=== PATIENT | female | born 1965 ===

== ENCOUNTER 2018-06-12 12:24 | Outpatient (CLI) | payer OTHER ==
[2018-06-12] MEDS ORDERED: COZAAR25 MG PO (15:55)
== END 2018-06-12 17:21 | disposition home or self-care (01) ==
LOC: EDBD 12:24 → RAD 12:24
DX: R05 Cough (principal)

== ENCOUNTER → 2018-06-12 13:45 | Outpatient (CLI) | payer OTHER ==
[~2018-06-12 13:45] MED LIST: COZAAR25 MG PO
== END | disposition home or self-care (01) ==
LOC: EKG 13:45
DX: Z01.818 Encounter for other preprocedural examination (principal)